=== PATIENT | male | born 1950 | race Caucasian/White ===

== ENCOUNTER 2017-07-07 09:14 | Day surgery (SDC) | payer OTHER ==
[~2017-07-07] VITALS: Ht 172.7 cm; Wt 89.1 kg
[~2017-07-07 09:14] MED LIST: ALFU10 PO; ASPI81CH PO; ASPI81EC PO; CEPH500 PO; CHOL10002 PO; CIPR500 PO; Cialis20 MG PO; DULO60 PO; DUTA.5 PO; FINA5 PO; FOLI1; FOLI1 PO; GENT.3OPSA OS; HYDACE5 PO; Keflex500 MG PO; MULTIVITAMIN; OMEP20ER PO; OXYACE5T PO; OXYACE7.5T PO; PHENA200; PROM25 PO; Percocet 5-3251 EACH PO; RXOXYACE PO; SULTRIDS; TAMS.4ER PO; [UNRECOGNIZED DRUG - OTHER]; [UNRECOGNIZED DRUG - REMARK]; [UNRECOGNIZED DRUG - REMARK]
== END 2017-07-07 11:47 | disposition home or self-care (01) ==
LOC: ORSCSDS 09:14
PROVIDERS: Surgery
PROC: 0DBL8ZX Excision of Transverse Colon, Via Natural or Artificial Opening Endoscopic, Diagnostic (ICD-10-PCS; principal; 2017-07-07 10:30)
DX: Z12.11 Encounter for screening for malignant neoplasm of colon (principal); D12.3 Benign neoplasm of transverse colon; I10 Essential (primary) hypertension; Z85.038 Personal history of other malignant neoplasm of large intestine; Z79.82 Long term (current) use of aspirin
CPT/HCPCS: 88305; J7120

== ENCOUNTER 2019-09-13 23:38 | Emergency (ER) | payer MEDICARE ==
[~2019-09-13] VITALS: Ht 175.3 cm; Wt 88.5 kg
[2019-09-14 00:14] LABS: BASOPHILS ABSOLUTE AUTO 0.07 K/mm3 (0.00-0.23); BASOPHILS PERCENT AUTO 1 % (0-2); EOSINOPHILS ABSOLUTE AUTO 0.21 K/mm3 (0.00-0.68); EOSINOPHILS PERCENT AUTO 3 % (0-6); Hematocrit 45.9 % (37.0-53.0); Hemoglobin 16.3 g/dL (13.5-17.5); IMMATURE GRAN ABSOLUTE AUTO 0.02 K/mm3 (0.00-0.10); IMMATURE GRAN PERCENT AUTO 0 % (0-1); LYMPHOCYTES ABSOLUTE AUTO 1.82 K/mm3 (0.84-5.20); LYMPHOCYTES PERCENT AUTO 23 % (21-46); MONOCYTES PERCENT AUTO 10 % (4-13); Mean Corpuscular HGB 31.6 pg (26.0-34.0); Mean Corpuscular HGB Conc 35.5 g/dL (31.5-36.5); Mean Corpuscular Volume 89 fL (80-100); Mean Platelet Volume 8.7 fL (9.1-12.4); NEUTROPHILS ABSOLUTE AUTO 4.91 K/mm3 (1.96-9.15); NEUTROPHILS PERCENT AUTO 63 % (41-73); Platelet Count 176 K/mm3 (150-400); RDW Coefficient Variation 12.3 % (11.7-14.2); RDW Standard Deviation 40.5 fL (35.1-46.3); Red Blood Cell Count 5.16 M/mm3 (4.30-5.90); White Blood Cell Count 7.83 K/mm3 (4.00-11.30)
[2019-09-14 00:28] LABS: Alanine Aminotransfer (ALT/SGP 31 U/L (12-78); Albumin, Blood 3.6 g/dL (3.4-5.0); Albumin/Globulin Ratio 1.2 (0.8-1.8); Alk Phos 49 U/L (50-136); Anion Gap 5 mmol/L (6-16); Aspartate Aminotrans (AST/SGOT 21 U/L (12-37); Bilirubin, Total 0.4 mg/dL (0.1-1.0); Blood Urea Nitrogen 17 mg/dL (8-24); CO2, Blood 26 mmol/L (21-32); Calcium, Blood 8.4 mg/dL (8.5-10.1); Chloride, Blood 112 mmol/L (98-108); Globulin, Blood 3.1 g/dL (2.2-4.0); Glomerular Filtration Rate >60 (60-); Glucose, Blood 117 mg/dL (70-99); Potassium, Blood 3.9 mmol/L (3.5-5.5); Sodium, Blood 143 mmol/L (136-145); Total Protein, Blood 6.7 g/dL (6.4-8.2); Troponin I <0.015 ng/mL (0.000-0.040)
== END 2019-09-14 01:33 | disposition home or self-care (01) ==
LOC: ER 23:38
PROVIDERS: Emergency Medicine
DX: R00.2 Palpitations (principal); Z79.82 Long term (current) use of aspirin
CPT/HCPCS: 36415; 71046; 80053; 84443; 84484; 85025; 93005; 93010; 99285-25

== ENCOUNTER 2024-07-06 17:01 | Inpatient (IN) | payer OTHER ==
[~2024-07-06] VITALS: Ht 182.9 cm; Wt 90.7 kg
[2024-07-06 17:22] LABS: BASOPHILS ABSOLUTE AUTO 0.07 K/mm3 (0.00-0.23); BASOPHILS PERCENT AUTO 1 % (0-2); EOSINOPHILS ABSOLUTE AUTO 0.07 K/mm3 (0.00-0.68); EOSINOPHILS PERCENT AUTO 1 % (0-6); Hematocrit 45.6 % (37.0-53.0); Hemoglobin 16.4 g/dL (13.5-17.5); IMMATURE GRAN ABSOLUTE AUTO 0.04 K/mm3 (0.00-0.10); IMMATURE GRAN PERCENT AUTO 0 % (0-1); LYMPHOCYTES ABSOLUTE AUTO 1.53 K/mm3 (0.84-5.20); LYMPHOCYTES PERCENT AUTO 11 % (21-46); MONOCYTES ABSOLUTE AUTO 0.98 K/mm3 (0.16-1.47); MONOCYTES PERCENT AUTO 7 % (4-13); Mean Corpuscular HGB 31.8 pg (26.0-34.0); Mean Corpuscular Volume 89 fL (80-100); Mean Platelet Volume 8.9 fL (9.1-12.4); NEUTROPHILS ABSOLUTE AUTO 11.62 K/mm3 (1.96-9.15); NEUTROPHILS PERCENT AUTO 81 % (41-73); Platelet Count 168 K/mm3 (150-400); RDW Coefficient Variation 12.2 % (11.7-14.2); RDW Standard Deviation 39.8 fL (35.1-46.3); Red Blood Cell Count 5.15 M/mm3 (4.30-5.90); White Blood Cell Count 14.31 K/mm3 (4.00-11.30)
[2024-07-06] MEDS ORDERED: Morphine Sulfate 4 MG/1 ML Injection IV ONE (17:30)
[2024-07-06] MEDS ORDERED: Ondansetron HCl 2 MG / ML 2ML Vial IV ONE (17:30)
[2024-07-06 17:53] LABS: Albumin, Blood 3.7 g/dL (3.4-5.0); Albumin/Globulin Ratio 1.2 (0.8-1.8); Bilirubin, Total 2.5 mg/dL (0.1-1.0); Bun/Creatinine Ratio 19.5 (12.0-20.0); Calcium, Blood 8.7 mg/dL (8.5-10.1); Creatinine, Blood 0.98 mg/dL (0.60-1.20); Globulin, Blood 3.2 g/dL (2.2-4.0); Total Protein, Blood 6.9 g/dL (6.4-8.2)
[2024-07-06] MEDS ORDERED: NS 1,000 ML IV SCH (18:10)
[2024-07-06] MEDS ORDERED: Piperacillin/Tazobactam Sod 4.5 GM in NS 100 ML IV ONE (18:10)
[2024-07-06 22:04] VITALS: BP 151/92
[2024-07-06] MEDS ORDERED: Lactated Ringer's 1,000 ML IV SCH (22:55)
[2024-07-06] MEDS ORDERED: Ondansetron HCl 2 MG / ML 2ML Vial IV PRN (22:55)
[2024-07-06] MEDS ORDERED: Morphine Sulfate 4 MG/1 ML Injection IV PRN (22:55)
[2024-07-06] MEDS ORDERED: CefTRIAXone Sodium 1,000 MG in NS 100 ML IV SCH (23:00)
[2024-07-06] MEDS ORDERED: NS 250 ML IV PRN (23:00)
[2024-07-06] MEDS ORDERED: FOLI1 PO (23:03)
[2024-07-07] MEDS ORDERED: MetroNIDAZOLE 500MG/NS 100 ml 100 ML IV SCH
[2024-07-07 02:12] LABS: BASOPHILS ABSOLUTE AUTO 0.05 K/mm3 (0.00-0.23); BASOPHILS PERCENT AUTO 0 % (0-2); EOSINOPHILS PERCENT AUTO 0 % (0-6); Hematocrit 41.3 % (37.0-53.0); Hemoglobin 14.8 g/dL (13.5-17.5); IMMATURE GRAN ABSOLUTE AUTO 0.11 K/mm3 (0.00-0.10); IMMATURE GRAN PERCENT AUTO 1 % (0-1); LYMPHOCYTES ABSOLUTE AUTO 0.56 K/mm3 (0.84-5.20); LYMPHOCYTES PERCENT AUTO 3 % (21-46); MONOCYTES ABSOLUTE AUTO 1.17 K/mm3 (0.16-1.47); MONOCYTES PERCENT AUTO 7 % (4-13); Mean Corpuscular HGB 31.9 pg (26.0-34.0); Mean Corpuscular HGB Conc 35.8 g/dL (31.5-36.5); Mean Corpuscular Volume 89 fL (80-100); Mean Platelet Volume 8.9 fL (9.1-12.4); NEUTROPHILS ABSOLUTE AUTO 16.12 K/mm3 (1.96-9.15); NEUTROPHILS PERCENT AUTO 90 % (41-73); Platelet Count 135 K/mm3 (150-400); RDW Coefficient Variation 12.6 % (11.7-14.2); RDW Standard Deviation 41.1 fL (35.1-46.3); Red Blood Cell Count 4.64 M/mm3 (4.30-5.90); White Blood Cell Count 18.01 K/mm3 (4.00-11.30)
[2024-07-07 02:23] LABS: Albumin, Blood 3.1 g/dL (3.4-5.0); Albumin/Globulin Ratio 1.1 (0.8-1.8); Bilirubin, Total 4.2 mg/dL (0.1-1.0); Calcium, Blood 8.4 mg/dL (8.5-10.1); Creatinine, Blood 1.06 mg/dL (0.60-1.20); Globulin, Blood 2.9 g/dL (2.2-4.0); Potassium, Blood 3.8 mmol/L (3.5-5.5)
--- NOTE | 2024-07-07 04:22 | NUR ---
SHIFT SUMMARY AOX4, IND IN ROOM. NPO FOR SURGERY. IV FLUIDS, ABX T/O NIGHT. DENIES N/V . MEDICATED FOR PAIN X1.VSS. CALL LIGHT IN REACH.
[2024-07-07 04:58] VITALS: BP 116/78
[2024-07-07 07:15] VITALS: BP 133/79
--- NOTE | 2024-07-07 09:28 | NUR ---
ASSUMPTION OF CARE THIS RN ASSUMED CARE AT APPROX 0715. PATIENT ALERT AND ORIENTED X4. IS [place] - BILATERAL HEARING AIDES AT BEDSIDE. COMMUNICATES NEEDS EFFECTIVELY. INDEPENDENT IN ROOM. VSS. NPO SINCE MIDNIGHT FOR LAP JOSIE TODAY. HYPOACTIVE BOWEL TONES, TENDER. DENIES N/V. DENIES PAIN AT THIS TIME. IVF INFUSING PER EMAR. CALL LIGHT IN REACH
--- NOTE | 2024-07-07 10:09 | NUR ---
UPDATE MD MULLEN IN ROOM W/ UPDATE. PLAN FOR MRI PRIOR TO PROCEDURE TO RULE OUT STONE. MRI SCREENING FORM FAXED TO IMAGING.
--- NOTE | 2024-07-07 14:59 | NUR ---
NURSE NOTIFY ORDER IN PLACE BY MD CALDERON TO CONTACT HOSPITALIST PATIENT NEEDS TRANSFER FOR ERCP. MD MULLEN CONTACTED. RECEIVED ORDER FOR FULL LIQUID DIET.
[2024-07-07 15:47] VITALS: BP 174/101
[2024-07-07 15:48] VITALS: BP 170/94
--- NOTE | 2024-07-07 15:53 | NUR ---
MD MULLEN CONTACTED PATIENTs TEMPERATURE SUSTAINING 99.9 - NO ORDERS FOR FEVER MANAGEMENT OVERNIGHT IF PATIENT DOES BECOME FEBRILE. RECEIVED ORDER FOR Q6H PRN TYLENOL 650MG. PATIENTs SBP 170s - MD AWARE. NO NEW ORDERS RECEIVED.
[2024-07-07] MEDS ORDERED: Acetaminophen 325 MG TABLET PO PRN (15:55)
--- NOTE | 2024-07-07 16:28 | NUR ---
SHIFT SUMMARY SEE PREVIOUS NOTES - NO ACUTE CHANGES. PATIENT REMAINS AFEBRILE - LAST ORAL TEMP 99.4. SBP 170s - MD AWARE. ASYMPTOMATIC, DENIES CHEST PAIN OR PRESSURE. NEED FOR TRANSFER FOR ERCP. MANAGING ABD PAIN PER EMAR. TOLERATING SMALL SIPS OF WATER AND FULL LIQUID DIET. VOIDING - BERNICE IN COLOR. IVF INFUSING PER EMAR. CALL LIGHT IN REACH. AT BEDSIDE. WILL CONTINUE TO MONITOR AND REPORT TO ONCOMING RN.
[2024-07-07 19:39] VITALS: BP 163/95
--- NOTE | 2024-07-08 04:33 | NUR ---
SHIFT SUMMARY REJI WAS ALERT AND FULLY ORIENTED ON ASSESMENT. PT STATES THAT HIS ABD PAIN IS GREATLY IMPROVED TONIGHT. PT INDEPENDENT IN ROOM. TOLERATING LIQUID PO. DENIES NAUSEA TONIGHT. AWAITING TRANSFER FOR ERCP. BP STILL ELEVATED, PER REPORT DAYSHIFT PASSED THIS ALONG TO MD, INSTRUCTED TO MONITOR AND MAKE NO CHANGES. NO ACUTE EVENTS TONIGHT, NO NOTED CHANGES TO PT CONDITION.
[2024-07-08 04:56] VITALS: BP 133/83
[2024-07-08 05:50] LABS: BASOPHILS ABSOLUTE AUTO 0.05 K/mm3 (0.00-0.23); BASOPHILS PERCENT AUTO 1 % (0-2); EOSINOPHILS ABSOLUTE AUTO 0.07 K/mm3 (0.00-0.68); EOSINOPHILS PERCENT AUTO 1 % (0-6); Hematocrit 37.9 % (37.0-53.0); Hemoglobin 13.8 g/dL (13.5-17.5); IMMATURE GRAN ABSOLUTE AUTO 0.08 K/mm3 (0.00-0.10); IMMATURE GRAN PERCENT AUTO 1 % (0-1); LYMPHOCYTES ABSOLUTE AUTO 1.11 K/mm3 (0.84-5.20); LYMPHOCYTES PERCENT AUTO 10 % (21-46); MONOCYTES ABSOLUTE AUTO 0.92 K/mm3 (0.16-1.47); MONOCYTES PERCENT AUTO 8 % (4-13); Mean Corpuscular HGB 32.1 pg (26.0-34.0); Mean Corpuscular HGB Conc 36.4 g/dL (31.5-36.5); Mean Corpuscular Volume 88 fL (80-100); Mean Platelet Volume 9.3 fL (9.1-12.4); NEUTROPHILS PERCENT AUTO 80 % (41-73); Platelet Count 95 K/mm3 (150-400); RDW Coefficient Variation 12.7 % (11.7-14.2); RDW Standard Deviation 41.1 fL (35.1-46.3); White Blood Cell Count 11.03 K/mm3 (4.00-11.30)
[2024-07-08] MEDS ORDERED: Pantoprazole Sodium 40 MG Tab PO SCH (06:00)
[2024-07-08 06:28] LABS: Alanine Aminotransfer (ALT/SGP 221 U/L (12-78); Albumin, Blood 2.7 g/dL (3.4-5.0); Albumin/Globulin Ratio 0.9 (0.8-1.8); Alk Phos 80 U/L (50-136); Anion Gap 7 mmol/L (3-11); Aspartate Aminotrans (AST/SGOT 90 U/L (12-37); Bilirubin, Total 4.2 mg/dL (0.1-1.0); Blood Urea Nitrogen 17 mg/dL (8-24); Bun/Creatinine Ratio 20.1 (12.0-20.0); CO2, Blood 25 mmol/L (21-32); Calcium, Blood 8.5 mg/dL (8.5-10.1); Chloride, Blood 109 mmol/L (98-108); Creatinine, Blood 0.85 mg/dL (0.60-1.20); Glomerular Filtration Rate 91 (60-); Glucose, Blood 113 mg/dL (70-99); Potassium, Blood 3.7 mmol/L (3.5-5.5); Prostate Specific Antigen <0.010 ng/mL (0.000-4.000); Sodium, Blood 137 mmol/L (136-145); Total Protein, Blood 5.7 g/dL (6.4-8.2)
[2024-07-08 07:54] VITALS: BP 145/85
--- NOTE | 2024-07-08 09:09 | NUR ---
MORNING NOTE THIS RN ASSUMED CARE AT APPROX 0715. PATIENT ALERT AND ORIENTED X4. COMMUNICATES NEEDS EFFECTIVELY. IS [place] - HEARING AIDES AT BEDSIDE. VSS. DENIES ABD PAIN @ THIS TIME. AWAITING TRANSFER FOR ERCP. TOLERATING FULL LIQUID DIET - NO EPISODES OF N/V @ THIS TIME. CALL LIGHT IN REACH. INDEPENDENT WITH ADLs.
[2024-07-08 15:09] VITALS: BP 153/93
--- NOTE | 2024-07-08 16:21 | NUR ---
COBRA TRANSFER PT ON WAIT LIST FOR [facility]. NO ACCEPTING DOCTOR OR BEDS AVAILABLE OF THIS AFTERNOON.
--- NOTE | 2024-07-08 17:01 | NUR ---
SHIFT SUMMARY NO ACUTE EVENTS SINCE MORNING NOTE. VSS. TOLERATING FULL LIQUID DIET. DENIES ABD PAIN THROUGHOUT DAY. AWAITING ACCEPTANCE FOR TRANSFER FOR ERCP. MEDICATED PER EMAR WITH PO TYLENOL FOR HEADACHE. INDEPENDENT IN ROOM. SHOWERED TODAY. VOIDING. CALL LIGHT IN REACH. WILL CONTINUE TO MONITOR AND REPORT TO ONCOMING RN.
[2024-07-08 19:36] VITALS: BP 128/77
[2024-07-09] VITALS (11 sets, daily range): BP systolic 114–140; BP diastolic 73–91
--- NOTE | 2024-07-09 04:14 | NUR ---
SHIFT SUMMARY REJI WAS ALERT AND FULLY ORIENTED ON ASSESMENT. PT DENIES ABDOMINAL PAIN AND NAUSEA. PT STATES THAT HE FEELS FINE AT THIS TIME. PT INDEPENDENT IN ROOM. [facility] UPDATED ON PT CONDITION TONIGHT. NO ACUTE EVENTS, NO CHANGES TO PT CONDITION. AWAITING TRANSFER.
[2024-07-09 05:54] LABS: BASOPHILS ABSOLUTE AUTO 0.06 K/mm3 (0.00-0.23); BASOPHILS PERCENT AUTO 1 % (0-2); EOSINOPHILS ABSOLUTE AUTO 0.15 K/mm3 (0.00-0.68); EOSINOPHILS PERCENT AUTO 2 % (0-6); Hematocrit 37.8 % (37.0-53.0); Hemoglobin 13.4 g/dL (13.5-17.5); IMMATURE GRAN ABSOLUTE AUTO 0.04 K/mm3 (0.00-0.10); IMMATURE GRAN PERCENT AUTO 1 % (0-1); LYMPHOCYTES ABSOLUTE AUTO 1.07 K/mm3 (0.84-5.20); LYMPHOCYTES PERCENT AUTO 12 % (21-46); MONOCYTES ABSOLUTE AUTO 0.85 K/mm3 (0.16-1.47); MONOCYTES PERCENT AUTO 10 % (4-13); Mean Corpuscular HGB 31.4 pg (26.0-34.0); Mean Corpuscular HGB Conc 35.4 g/dL (31.5-36.5); Mean Corpuscular Volume 89 fL (80-100); Mean Platelet Volume 9.1 fL (9.1-12.4); NEUTROPHILS ABSOLUTE AUTO 6.52 K/mm3 (1.96-9.15); NEUTROPHILS PERCENT AUTO 75 % (41-73); Platelet Count 97 K/mm3 (150-400); RDW Coefficient Variation 12.6 % (11.7-14.2); RDW Standard Deviation 41.3 fL (35.1-46.3); Red Blood Cell Count 4.27 M/mm3 (4.30-5.90); White Blood Cell Count 8.69 K/mm3 (4.00-11.30)
[2024-07-09 06:33] LABS: Albumin, Blood 2.6 g/dL (3.4-5.0); Albumin/Globulin Ratio 0.8 (0.8-1.8); Bilirubin, Total 1.9 mg/dL (0.1-1.0); Bun/Creatinine Ratio 14.6 (12.0-20.0); Calcium, Blood 8.5 mg/dL (8.5-10.1); Creatinine, Blood 0.89 mg/dL (0.60-1.20); Globulin, Blood 3.3 g/dL (2.2-4.0); Potassium, Blood 3.8 mmol/L (3.5-5.5); Total Protein, Blood 5.9 g/dL (6.4-8.2)
[2024-07-09] MEDS ORDERED: Indocyanine Green 25 MG Vial IV ONE (12:50)
[2024-07-09] MEDS ORDERED: propofoL 20 ML IV ONE (12:51)
[2024-07-09] MEDS ORDERED: FentaNYL Citrate 50 MCG/ML 2 ML Injection ONE (12:52)
[2024-07-09] MEDS ORDERED: Lactated Ringer's 1,000 ML IV ONE (12:53)
[2024-07-09] MEDS ORDERED: Bupivacaine 0.5% HCl 5 MG/ML 30MLVIAL ONE (13:16)
[2024-07-09] MEDS ORDERED: Ondansetron HCl 2 MG / ML 2ML Vial ONE (13:44)
[2024-07-09] MEDS ORDERED: Dexamethasone Sod Phos 10 MG/ML 1ML VIAL ONE (13:44)
[2024-07-09] MEDS ORDERED: Rocuronium Bromide 10 MG/ML 5ML Injection IV ONE ×2 (13:44→14:02)
[2024-07-09] MEDS ORDERED: Sugammadex Sodium 200 MG/2ML SDV (100 MG/ML) ONE (14:06)
[2024-07-09] MEDS ORDERED: ePHEDrine Sulfate 50 MG/ML 1ML Injection ONE (14:31)
--- NOTE | 2024-07-09 15:24 | NUR ---
PT TO OR FROM ROOM 216
--- NOTE | 2024-07-09 17:33 | NUR ---
SHIFT SUMMARY/POST OP NOTE PT IS [place] FOR LAP JOSIE. LAP SITES W/ EXOFEN X4 C/D/I. PT IS ALERT AND RESPONSIVE. SPOUSE AT BEDSIDE. PAIN IS TOLERABLE, DENIES N/V. VSS. ABX PER EMAR. PT TOLERATING PO FLUIDS AND SNACKS. CALL LIGHT IN REACH.
[2024-07-09] MEDS ORDERED: OxyCODONE HCL 5 MG TAB PO PRN (19:30)
[2024-07-10 00:19] VITALS: BP 135/83
--- NOTE | 2024-07-10 04:25 | NUR ---
SHIFT SUMMARY; PATIENT SLEPT IN LONG INTERVALS. IV SALINE LOCKED AFTER MIDNIGHT ABX. VSS. THE ONLY PRN MEDS WERE 1 DOSE OF TYLENOL JUST BEFORE MY SHIFT. ATE LIGHTLY. INDEPENDENTLY TO BR. COPIOUS AMOUNTS OF LITE URINE.
[2024-07-10 05:25] VITALS: BP 148/88
[2024-07-10 10:31] LABS: BASOPHILS ABSOLUTE AUTO 0.04 K/mm3 (0.00-0.23); BASOPHILS PERCENT AUTO 0 % (0-2); EOSINOPHILS ABSOLUTE AUTO 0.01 K/mm3 (0.00-0.68); EOSINOPHILS PERCENT AUTO 0 % (0-6); Hematocrit 41.5 % (37.0-53.0); Hemoglobin 14.7 g/dL (13.5-17.5); IMMATURE GRAN ABSOLUTE AUTO 0.04 K/mm3 (0.00-0.10); IMMATURE GRAN PERCENT AUTO 0 % (0-1); LYMPHOCYTES ABSOLUTE AUTO 1.06 K/mm3 (0.84-5.20); LYMPHOCYTES PERCENT AUTO 9 % (21-46); MONOCYTES ABSOLUTE AUTO 0.68 K/mm3 (0.16-1.47); MONOCYTES PERCENT AUTO 6 % (4-13); Mean Corpuscular HGB 31.5 pg (26.0-34.0); Mean Corpuscular HGB Conc 35.4 g/dL (31.5-36.5); Mean Corpuscular Volume 89 fL (80-100); Mean Platelet Volume 8.9 fL (9.1-12.4); NEUTROPHILS ABSOLUTE AUTO 9.48 K/mm3 (1.96-9.15); NEUTROPHILS PERCENT AUTO 84 % (41-73); Platelet Count 119 K/mm3 (150-400); RDW Coefficient Variation 12.5 % (11.7-14.2); RDW Standard Deviation 41.1 fL (35.1-46.3); Red Blood Cell Count 4.66 M/mm3 (4.30-5.90); White Blood Cell Count 11.31 K/mm3 (4.00-11.30)
[2024-07-10 10:52] VITALS: BP 141/76
[2024-07-10 10:54] LABS: Albumin, Blood 2.9 g/dL (3.4-5.0); Albumin/Globulin Ratio 0.8 (0.8-1.8); Bilirubin, Total 1.3 mg/dL (0.1-1.0); Bun/Creatinine Ratio 17.1 (12.0-20.0); Calcium, Blood 8.4 mg/dL (8.5-10.1); Creatinine, Blood 0.93 mg/dL (0.60-1.20); Globulin, Blood 3.8 g/dL (2.2-4.0); Potassium, Blood 3.4 mmol/L (3.5-5.5); Total Protein, Blood 6.7 g/dL (6.4-8.2)
[2024-07-10] MEDS ORDERED: Potassium Chloride 20 MEQ TabCR PO ONE (13:00)
--- NOTE | 2024-07-10 16:25 | NUR ---
SHIFT SUMMARY PT IS POD1 FOR JOSIE. DRESSINGS C/D/I. PAIN CONTROLLED W/ PO TYLENOL. VSS. PT AMBULATING IND IN ROOM, VOIDING, TOLERATING REG DIET AND FLUIDS. ABX GIVEN ORDERED. PAS ON. SPOUSE AT BEDSIDE. CALL LIGHT IN REACH.
[2024-07-10 18:34] VITALS: BP 152/84
--- NOTE | 2024-07-10 18:35 | NUR ---
RN NOTIFIED URINE IS TEA/BERNICE COLOR.
[2024-07-10 18:57] VITALS: BP 169/90
[2024-07-10 20:13] VITALS: BP 143/95
[2024-07-10] MEDS ORDERED: OxyCODONE HCL 5 MG TAB PO PRN (21:30)
[2024-07-11 04:29] VITALS: BP 128/83
--- NOTE | 2024-07-11 05:32 | NUR ---
SHIFT SUMMARY POD2 LAP JOSIE. X5 LAP SITES WITH WOUND GLUE. C/D/I. TOLERATING REG DIET. DENIES N/V. PASSING FLATUS, VOIDING, NO BM. MEDICATED FOR PAIN THIS SHIFT. ABD MILD DISTENTION, BOWEL SOUNDS ACTIVE. VSS, CALL LIGHT IN REACH.
[2024-07-11 05:52] LABS: BASOPHILS ABSOLUTE AUTO 0.07 K/mm3 (0.00-0.23); BASOPHILS PERCENT AUTO 1 % (0-2); EOSINOPHILS ABSOLUTE AUTO 0.15 K/mm3 (0.00-0.68); EOSINOPHILS PERCENT AUTO 2 % (0-6); Hematocrit 38.2 % (37.0-53.0); Hemoglobin 13.6 g/dL (13.5-17.5); IMMATURE GRAN ABSOLUTE AUTO 0.06 K/mm3 (0.00-0.10); IMMATURE GRAN PERCENT AUTO 1 % (0-1); LYMPHOCYTES ABSOLUTE AUTO 2.19 K/mm3 (0.84-5.20); LYMPHOCYTES PERCENT AUTO 24 % (21-46); MONOCYTES ABSOLUTE AUTO 0.96 K/mm3 (0.16-1.47); MONOCYTES PERCENT AUTO 11 % (4-13); Mean Corpuscular HGB 31.9 pg (26.0-34.0); Mean Corpuscular HGB Conc 35.6 g/dL (31.5-36.5); Mean Corpuscular Volume 90 fL (80-100); Mean Platelet Volume 9.1 fL (9.1-12.4); NEUTROPHILS ABSOLUTE AUTO 5.72 K/mm3 (1.96-9.15); NEUTROPHILS PERCENT AUTO 63 % (41-73); Platelet Count 136 K/mm3 (150-400); RDW Coefficient Variation 12.6 % (11.7-14.2); RDW Standard Deviation 41.1 fL (35.1-46.3); Red Blood Cell Count 4.26 M/mm3 (4.30-5.90); White Blood Cell Count 9.15 K/mm3 (4.00-11.30)
[2024-07-11 06:38] LABS: Albumin, Blood 2.6 g/dL (3.4-5.0); Albumin/Globulin Ratio 0.8 (0.8-1.8); Bilirubin, Total 1.1 mg/dL (0.1-1.0); Bun/Creatinine Ratio 15.1 (12.0-20.0); Calcium, Blood 8.2 mg/dL (8.5-10.1); Creatinine, Blood 1.06 mg/dL (0.60-1.20); Globulin, Blood 3.1 g/dL (2.2-4.0); Potassium, Blood 4.2 mmol/L (3.5-5.5); Total Protein, Blood 5.7 g/dL (6.4-8.2)
[2024-07-11 07:29] VITALS: BP 155/98
[2024-07-11 07:30] VITALS: BP 149/84
[2024-07-11] MEDS ORDERED: OXYC5 PO (10:59)
[2024-07-11] MEDS ORDERED: ACET325 PO (10:59)
[2024-07-11] MEDS ORDERED: PANT40 PO (10:59)
--- NOTE | 2024-07-11 12:20 | NUR ---
DISCHARGE DOING WELL & EXCITED FOR DC. EATING & DRINKING; DENIES N/V. PASSING GAS, BUT NO BM. UNDERSTANDS BOWEL CARE. PAIN WELL CONTROLLED. SURG SITES WNL. NO DRNG NOTED.
== END 2024-07-11 12:25 | disposition home or self-care (01) | DRG 418 ==
LOC: ER 17:01 → SURS 21:24
PROVIDERS: Internal Medicine; Physician Assistant; Student in an Organized Health Care Education/Training Program; Surgery; ADMIT Internal Medicine
PROC: 0DNW4ZZ Release Peritoneum, Percutaneous Endoscopic Approach (ICD-10-PCS; 2024-07-09)
PROC: 8E0W4CZ Robotic Assisted Procedure of Trunk Region, Percutaneous Endoscopic Approach (ICD-10-PCS; 2024-07-09)
PROC: 0FT44ZZ Resection of Gallbladder, Percutaneous Endoscopic Approach (ICD-10-PCS; principal; 2024-07-09 15:15)
DX: K80.63 Calculus of gallbladder and bile duct with acute cholecystitis with obstruction (principal); K56.52 Intestinal adhesions [bands] with complete obstruction; G43.909 Migraine, unspecified, not intractable, without status migrainosus; I10 Essential (primary) hypertension; N40.0 Benign prostatic hyperplasia without lower urinary tract symptoms; K59.00 Constipation, unspecified; Z85.038 Personal history of other malignant neoplasm of large intestine; Z79.82 Long term (current) use of aspirin; Z90.89 Acquired absence of other organs; Z98.890 Other specified postprocedural states; Z90.49 Acquired absence of other specified parts of digestive tract; Z79.899 Other long term (current) drug therapy; Z85.46 Personal history of malignant neoplasm of prostate; Z79.891 Long term (current) use of opiate analgesic; Z90.79 Acquired absence of other genital organ(s)
CPT/HCPCS: 36415; 71046; 74177; 74181; 76705; 80053; 83605; 83690; 84484; 85025; 87040; 88304; 93005; 93010; 96365-59; 96375; 99285-25; A9270; G0103; J0696; J1100; J2270; J2405; J2543; J2704; J3010; J7030; J7050; J7120; Q9967

== ENCOUNTER 2024-08-25 08:43 | Day surgery (SDC) | payer OTHER ==
[~2024-08-25] VITALS: Ht 182.9 cm; Wt 91.1 kg
[~2024-08-25 08:43] MED LIST changes: +ACET325 PO; +Lactated Ringer's 1,000 ML IV ONE; +OXYC5 PO; +PANT40 PO; +propofoL 50 ML IV ONE
[2024-08-25] MEDS ORDERED: MULVITA (09:21)
[2024-08-25] MEDS ORDERED: Lactated Ringer's 1,000 ML IV ONE (10:18)
[2024-08-25 18:29] VITALS: BP 114/73
--- NOTE | 2024-08-25 18:33 | NUR ---
08/25/24 Rebecca2 Roshni Tellez LATE ENTRY: DURING PROCEDURE 4 CC OF SALINE INJECTED INTO POLYP TO RAISE IT
== END 2024-08-26 12:00 | disposition home or self-care (01) ==
LOC: ORSCSDS 08:43
PROVIDERS: Surgery
PROC: 0DBK8ZX Excision of Ascending Colon, Via Natural or Artificial Opening Endoscopic, Diagnostic (ICD-10-PCS; principal; 2024-08-25 10:15)
PROC: 0DBP8ZX Excision of Rectum, Via Natural or Artificial Opening Endoscopic, Diagnostic (ICD-10-PCS; principal; 2024-08-25 10:15)
DX: Z12.11 Encounter for screening for malignant neoplasm of colon (principal); Z85.038 Personal history of other malignant neoplasm of large intestine; Z86.0101 Personal history of adenomatous and serrated colon polyps; D12.2 Benign neoplasm of ascending colon; K62.1 Rectal polyp; K57.30 Diverticulosis of large intestine without perforation or abscess without bleeding; I10 Essential (primary) hypertension
CPT/HCPCS: 88305; J2704; J7120